=== PATIENT | female | born 1990 | race Caucasian/White ===

== ENCOUNTER 2020-01-04 09:54 | Emergency (ER) | payer MEDICAID, SELFPAY ==
[~2020-01-04] VITALS: Ht 157.5 cm; Wt 152.0 kg
[2020-01-04 10:18] VITALS: Ht 157.5 cm; Wt 152.0 kg
[2020-01-04 11:32] LABS: BASOPHIL % 0.3 % (0-2); PLATELET COUNT 253 x10^3mcL (130-400); RED CELL DISTRIBUTION WIDTH 13.1 % (11.5-14.5)
[2020-01-04 11:35] LABS: CALCIUM 7.8 mg/dL (8.5-10.1); CARBON DIOXIDE 26.1 mmol/L (21-32); CHLORIDE SERUM 94 mmol/L (98-107); GFR1 > 60 mL/min; GLUCOSE SERUM 93 mg/dL (74-106); POTASSIUM SERUM 3.2 mmol/L (3.5-5.1); SODIUM SERUM 132 mmol/L (136-145)
[2020-01-04 11:40] LABS: ALBUMIN 2.7 g/dL (3.4-5.0); ALKALINE PHOSPHATASE 42 U/L (46-116); ALT/SGPT 67 U/L (14-59); AST/SGOT 60 U/L (15-37); BILIRUBIN TOTAL 0.42 mg/dL (0.20-1.00); C REACTIVE PROTEIN 7.9 mg/dL (<=0.9); LACTIC DEHYDROGENASE (LDH) 415 U/L (100-190); TOTAL PROTEIN, SERUM 7.1 g/dL (6.4-8.2)
[2020-01-04 11:54] LABS: microscopic required? YES; urine erythrocyte NEGATIVE (NEGATIVE)
[2020-01-04 18:08] VITALS: BP 103/63
== END 2020-01-04 18:08 | disposition home or self-care (01) ==
LOC: EDSEX 09:54 → ED 09:54
PROVIDERS: Emergency Medicine
DX: U07.1 COVID-19 (principal); E86.0 Dehydration
CPT/HCPCS: 83880; 87804; J7030; Q0092